=== PATIENT | female | born 1990 | race African-American/Black ===

== ENCOUNTER 2020-11-03 17:44 | Emergency (ER) | payer MEDICAID ==
[~2020-11-03] VITALS: Ht 177.8 cm; Wt 136.1 kg
[2020-11-03 18:59] VITALS: BP 150/83
[2020-11-03] MEDS ORDERED: methylPREDNISolone SOD SUCC 125 MG/2 ML VL IM ONE (22:00)
[2020-11-03] MEDS ORDERED: diphenhdrAMINE HCL 50 MG/1 ML VL IM ONE (22:00)
== END 2020-11-03 22:28 | disposition home or self-care (01) ==
LOC: ER 17:44
DX: T78.49XA Other allergy, initial encounter (principal); L50.9 Urticaria, unspecified; X58.XXXA Exposure to other specified factors, initial encounter
CPT/HCPCS: 81025; 96372; 99284; J1200; J2930